=== PATIENT | female | born 1935 | race Two or more races ===

== ENCOUNTER 2018-09-21 05:00 | Day surgery (SDC) | payer OTHER ==
[2018-09-21] MEDS ORDERED: ULTRACET PO (08:53)
[2018-09-21] MEDS ORDERED: MACROBID 100 M100 MG PO (08:53)
== END 2018-09-21 11:50 | disposition home or self-care (01) ==
LOC: CIR.AMB 05:00
DX: N81.3 Complete uterovaginal prolapse (principal)